=== PATIENT | female | born 1985 | race African-American/Black ===

== ENCOUNTER 2021-07-26 16:53 | Emergency (ER) | payer MEDICARE, MEDICAID ==
[~2021-07-26] VITALS: Ht 152.4 cm; Wt 65.0 kg
--- NOTE | 2021-07-26 18:19 | NUR ---
under presser note: Pt to room from [facility], ambulatory with steady gait, HARI.
[2021-07-26] MEDS ORDERED: ZIPRASIDONE 20 MG INJ IM ONE ×2 (18:49→19:30)
--- NOTE | 2021-07-26 19:00 | NUR ---
ASSUMED CARE OF PATIENT. PATIENT WAS BROUGHT IN BY MOTHER AFTER SHE WAS THROWING PATIO FURNITURE OUT HOME TODAY. MOTHER REPORTS PT HAS SCHIZOPHRENIA AND HAS NOT BEEN TAKING HER MEDS. PT MOVING AROUND ROOM AND YELLING AND DR ROGERS AND MOTHER. PT HAS RANDOM THOUGHTS. PT THREATENING STAFF. SECURITY CALLED. PT PUT IN RESTRAINTS PER DR ROGERS. MOTHER AT BEDSIDE. PT MEDICATED. PT MOVING AROUND BED AND SCREAMING. PULSE OX ON. VS STABLE. WILL CONTINUE TO MONITOR.
--- NOTE | 2021-07-26 19:17 | NUR ---
MOTHER AT BEDSIDE.
[2021-07-26 19:25] LABS: BASOPHILS % (AUTO) 1 % (0-1); EOSINOPHILS % (AUTO) 3 % (1-7); LYMPHOCYTES % (AUTO) 24 % (22-44); MEAN CORPUSCULAR HEMOGLOBIN 31.5 pg (27.0-34.8); MEAN CORPUSCULAR HGB CONC 34.4 g/dL (32.4-35.8); MEAN PLATELET VOLUME 7.7 fL (7.4-10.4); MONOCYTES % (AUTO) 4 % (2-9); NEUTROPHILS % (AUTO) 68 % (42-75); PLATELET COUNT 314 x10^3/uL (130-400); RED BLOOD COUNT 4.23 x10^6/uL (3.82-5.3); RED CELL DISTRIBUTION WIDTH 14.7 % (9.6-15.2)
[2021-07-26 19:26] LABS: ALANINE AMINOTRANSFERASE 21 U/L (12-78); ALBUMIN 3.5 g/dL (3.4-5.0); ANION GAP 12 mmol/L (5-15); CALCIUM 8.7 mg/dL (8.5-10.1); CHLORIDE 105 mmol/L (98-107); CREATININE 0.86 mg/dL (0.55-1.02); SALICYLATE LEVEL 4.5 mg/dL (2.8-20.0)
[2021-07-26] MEDS ORDERED: LORazepam 2 MG/ML, 1ML IM ONE (19:30)
--- NOTE | 2021-07-26 19:35 | NUR ---
PT NOW CALM, SECURITY CALLED. RESTRAINTS REMOVED. MOTHER AT BEDSIDE. VS STABLE. DR ROGERS AWARE.
[2021-07-26 19:36] LABS: ALKALINE PHOSPHATASE 92 U/L (45-117); BILIRUBIN,TOTAL 0.3 mg/dL (0.2-1.0); TOTAL PROTEIN 9.2 g/dL (6.4-8.2)
--- NOTE | 2021-07-26 19:51 | NUR ---
PT RESTING IN ROOM. MOTHER AT BEDSIDE. VS STABLE. BELONGING LIST DONE AND LOCKED UP. MOTHER TAKING PT'S PURSE AND KEYS HOME.
[2021-07-26] MEDS ORDERED: POTASSIUM CHLORIDE 20 MEQ TAB.ER.PRT PO ONE (20:00)
[2021-07-26 20:12] VITALS: BP 127/60
--- NOTE | 2021-07-26 20:13 | NUR ---
PT RESTING IN ROOM. VS STABLE. MOTHER AT BEDSIDE. WILL CONTINUE TO MONITOR.
--- NOTE | 2021-07-26 20:41 | NUR ---
BEDSIDE REPORT GIVEN TO JULIO REYNA. PT MOVED TO ROOM 3. SITTER AT DOOR.
[2021-07-26] MEDS ORDERED: POTASSIUM CHLORIDE 20 MEQ TAB.ER.PRT ONE (21:02)
--- NOTE | 2021-07-26 21:30 | NUR ---
pt resdting in room. ptovided sandwich and juice per request. mother left at the time. no other needs. sitter at bedside
--- NOTE | 2021-07-26 22:00 | NUR ---
[facility] – [place] [facility])- [phone]
--- NOTE | 2021-07-26 22:30 | NUR ---
covid swab for bhu and urine sent. no other needs at this time. pt in line of sight of [place]
[2021-07-26 22:50] LABS: AMPHETAMINE SCREEN, URINE Negative (Negative); BARBITURATE SCREEN, URINE Negative (Negative); BENZODIAZEPINE SCREEN, URINE Negative (Negative); CANNABINOID SCREEN, URINE Negative (Negative); COCAINE SCREEN, URINE Negative (Negative); METHADONE SCREEN, URINE Negative (Negative); OPIATE SCREEN, URINE Negative (Negative)
[2021-07-26 22:56] LABS: MICROSCOPIC AUTO
== END 2021-07-27 00:22 ==
LOC: ED 21:26
DX: F20.9 Schizophrenia, unspecified (principal); F29 Unspecified psychosis not due to a substance or known physiological condition
CPT/HCPCS: 36415; 80053; 80299; 80307; 80320; 81001; 84443; 84703; 85025; 87086; 96372; 99291; J3486; 80329; G0480